=== PATIENT | female | born 2000 | race African-American/Black ===

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

== ENCOUNTER 2022-01-03 15:10 | Emergency (ER) | payer MEDICAID ==
[~2022-01-03] VITALS: Ht 175.3 cm; Wt 152.0 kg
[2022-01-03 15:27] VITALS: TEMP 99.1
[2022-01-03 17:12] LABS: STREP SCREEN NEGATIVE
[2022-01-03 17:43] VITALS: BP 112/67; PULSE 98
== END 2022-01-03 17:43 | disposition home or self-care (01) ==
LOC: COL.ER 15:10
PROVIDERS: Nurse Practitioner
DX: J06.9 Acute upper respiratory infection, unspecified (principal); Z20.822 Contact with and (suspected) exposure to COVID-19; Z28.310 Unvaccinated for COVID-19

== ENCOUNTER 2023-11-15 08:31 | Emergency (ER) | payer SELFPAY ==
[~2023-11-15] VITALS: Ht 180.3 cm; Wt 154.5 kg
[2023-11-15 08:35] VITALS: BP 151/91; TEMP 98
[2023-11-15] MEDS ORDERED: BACITRACIN TP ONE (09:00)
[2023-11-15] MEDS ORDERED: Ibuprofen 600 MG TAB PO ONE (09:00)
[2023-11-15] MEDS ORDERED: POLYMYX B TP ONE (09:00)
[2023-11-15] MEDS ORDERED: NEOMYCIN TP ONE (09:00)
[2023-11-15 10:13] VITALS: PULSE 74
== END 2023-11-15 10:13 | disposition home or self-care (01) ==
LOC: COL.ER 08:31
DX: S20.213A Contusion of bilateral front wall of thorax, initial encounter (principal); T22.212A Burn of second degree of left forearm, initial encounter; S50.812A Abrasion of left forearm, initial encounter; V47.5XXA Car driver injured in collision with fixed or stationary object in traffic accident, initial encounter; Y92.410 Unspecified street and highway as the place of occurrence of the external cause